=== PATIENT | male | born 1945 | race Caucasian/White ===

== ENCOUNTER 2019-08-12 10:59 | Day surgery (SDC) | payer MEDICARE ==
--- NOTE | 2019-08-12 10:18 | HP ---
DATE OF SURGERY: 08/12/2019 HISTORY OF PRESENT ILLNESS: The patient is a 73 year-old with some mild lower abdominal ache. Last colonoscopy a long time ago. He is in need of follow up screening colonoscopy. Family history of colon cancer. No blood stools currently. With family history of colon cancer he is in need of follow up screening colonoscopy. PAST MEDICAL HISTORY: He denies any chronic illnesses. PAST SURGICAL HISTORY: Tonsillectomy. MEDICATIONS: None on a regular basis. ALLERGIES: NKDA. FAMILY HISTORY: Colon cancer. SOCIAL HISTORY: No smoking or alcohol abuse. REVIEW OF SYSTEMS: Fourteen systems reviewed. No chest pain or palpitations other systems negative or noncontributory as above and per preadmission questionnaire. PHYSICAL EXAMINATION: GENERAL: No acute distress. HEENT: Sclerae nonicteric. NECK: No JVD. CHEST: Equal excursion, nonlabored breathing. CVS: Regular rate and rhythm. ABDOMEN: Soft. No peritoneal signs. EXTREMITIES: No significant edema. NEURO: Alert, oriented, moving extremities symmetrically. No gross motor deficits noted. RECTAL: Deferred timed to endoscopy exam. IMPRESSION: Family history of colon cancer, need for follow up screening colonoscopy. I feel he is a candidate. Risks and benefits explained in detail including but not limited to bleeding or infection, risk of bowel injury or perforation possibly requiring open procedure, risk of missed or nondiagnosis or incomplete exam possibly requiring barium enema, other studies or procedures, general risk of anesthesia or sedation, risk of bowel prep, postoperative risk of nausea, vomiting or cramping but not limited to. He understands and agrees to the planned procedure and will proceed with outpatient colonoscopy.
[~2019-08-12 10:59] MED LIST: Lactated Ringers 1,000 ML IV SCH
[2019-08-12 12:15] LABS: ANION GAP 13.6 MEQ/L (5-15); BLOOD UREA NITROGEN 15 mg/dL (9-20); CHLORIDE 102 mmol/L (98-107); Calcium 9.3 mg/dL (8.4-10.2); Carbon Dioxide 29 mmol/L (22-30); Creatinine 1 0.86 mg/dL (0.66-1.25); Glucose 98 mg/dL (74-106); Potassium 4.2 mmol/L (3.5-5.1); SODIUM 140 mmol/L (137-145)
[2019-08-12] MEDS ORDERED: DIPRIVAN 200 MG/20 ML IV ONE (13:22)
[2019-08-12] MEDS ORDERED: Xylocaine-Mpf 2% 5 Ml Vial ONE (13:39)
[2019-08-12 15:29] VITALS: O2SAT 100
[2019-08-12 15:33] VITALS: BP 157/76
[2019-08-12 15:37] VITALS: PULSE 63
--- NOTE | 2019-08-13 08:29 | OP ---
SURGERY DATE/TIME: 08/12/2019 1321 PREOPERATIVE DIAGNOSIS: Family history of colon cancer, need for screening colonoscopy. POSTOPERATIVE DIAGNOSES: 1) Fair bowel prep. 2) Diverticulosis. 3) Colon polyps. 4) Small internal and external hemorrhoids. 5) Very tortuous colon. 6) Diverticulosis. PROCEDURES: 1) Colonoscopy to cecum with hot biopsy removal of small early transverse colon polyp. 2) Hot biopsy small raised lesion proximal rectum. 3) Hot snare polypectomy small distal rectal polyp. SURGEON: Dr. Chente Shaffer. ANESTHESIA: MAC. ESTIMATED BLOOD LOSS: Minimal. INDICATIONS: As noted above. Risks and benefits explained in detail but not limited to and consent obtained. DESCRIPTION OF PROCEDURE AND FINDINGS: The patient is taken to the operating room. MAC anesthesia introduced. After official time out and no disagreement with planned procedure, digital rectal exam did not reveal any rectal masses. He did have some small internal and external hemorrhoids. Video colonoscope inserted and passed up through the tortuous sigmoid, descending, transverse, very tortuous colon particularly the left side. It took quite some time positioning on his back and multiple staff members pushing on the patient's abdomen, the scope was able to be passed slowly and carefully down the transverse, ascending colon to cecum. Appendiceal orifice and valve were well visualized. Prep overall was fair. There was a little bit of liquidy stool throughout the colon just slightly limiting the exam for small lesions. This was suction irrigated as well as clear as possible. The scope is slowly and carefully withdrawn over the next 10 minutes. Small early polyp was removed with hot biopsy forceps in the transverse colon. The scope carefully pulled back. He did have some diverticulosis. The scope is pulled back to proximal rectum where a very small raised lesion versus hyperplastic lesion removed with hot biopsy forceps with brief bursts of cautery. Good hemostasis noted. In the distal rectum 2 or 3 cm from the rectal verge appeared to be 3 to 3.5 mm polyp this was removed with hot snare polypectomy with brief bursts of cautery. The base appeared to be clear on visual inspection. The staff said the polyp was retrieved and passed off for pathology. Whether this is hyperplastic versus adenoma, good hemostasis was noted. Otherwise he had some small internal and external hemorrhoids. There were no signs of any large polyps, masses or obstructing lesions. The scope is withdrawn. The patient tolerated the procedure well. There were no immediate complications. Findings discussed with the family out in the waiting area.
== END 2019-08-12 15:10 | disposition home or self-care (01) ==
LOC: SDC 10:59
PROVIDERS: ATTEND Surgery
DX: Z12.11 Encounter for screening for malignant neoplasm of colon (principal); K57.30 Diverticulosis of large intestine without perforation or abscess without bleeding; D12.3 Benign neoplasm of transverse colon; K63.5 Polyp of colon; D12.8 Benign neoplasm of rectum; Z80.0 Family history of malignant neoplasm of digestive organs; K64.4 Residual hemorrhoidal skin tags; K64.8 Other hemorrhoids
CPT/HCPCS: 36415; 80048; 83735; 88305; 93005; 99100; J2704